=== PATIENT | male | born 1950 | race Caucasian/White ===

== ENCOUNTER 2020-09-14 09:56 | Inpatient (IN) | payer OTHER, MEDICARE, BC ==
[~2020-09-14] VITALS: Ht 172.7 cm; Wt 84.3 kg
[2020-09-14 10:31] LABS: BASOPHILS ABSOLUTE AUTO 0.06 K/mm3 (0.00-0.23); BASOPHILS PERCENT AUTO 1 % (0-2); EOSINOPHILS ABSOLUTE AUTO 0.04 K/mm3 (0.00-0.68); EOSINOPHILS PERCENT AUTO 1 % (0-6); Hematocrit 45.8 % (37.0-53.0); Hemoglobin 14.3 g/dL (13.5-17.5); IMMATURE GRAN ABSOLUTE AUTO 0.03 K/mm3 (0.00-0.10); IMMATURE GRAN PERCENT AUTO 0 % (0-1); LYMPHOCYTES PERCENT AUTO 10 % (21-46); MONOCYTES ABSOLUTE AUTO 0.76 K/mm3 (0.16-1.47); MONOCYTES PERCENT AUTO 9 % (4-13); Mean Corpuscular HGB 29.4 pg (26.0-34.0); Mean Corpuscular HGB Conc 31.2 g/dL (31.5-36.5); Mean Corpuscular Volume 94 fL (80-100); Mean Platelet Volume 12.1 fL (9.1-12.4); NEUTROPHILS ABSOLUTE AUTO 7.08 K/mm3 (1.96-9.15); NEUTROPHILS PERCENT AUTO 80 % (41-73); Platelet Count 210 K/mm3 (150-400); RDW Coefficient Variation 13.7 % (11.7-14.2); RDW Standard Deviation 47.8 fL (35.1-46.3); Red Blood Cell Count 4.87 M/mm3 (4.30-5.90); White Blood Cell Count 8.87 K/mm3 (4.00-11.30)
[2020-09-14 10:45] LABS: International Normalized Ratio 0.98; Prothrombin Time Results 10.5 Sec (9.7-11.5)
[2020-09-14 10:47] LABS: Albumin, Blood 3.9 g/dL (3.4-5.0); Bilirubin, Total 1.2 mg/dL (0.1-1.0); Calcium, Blood 9.2 mg/dL (8.5-10.1); Creatinine, Blood 1.33 mg/dL (0.60-1.20); Free Thyroxine 1.12 ng/dL (0.70-1.60); Globulin, Blood 3.8 g/dL (2.2-4.0); Potassium, Blood 4.4 mmol/L (3.5-5.5); Total Protein, Blood 7.7 g/dL (6.4-8.2); Troponin I 0.034 ng/mL (0.000-0.040)
[2020-09-14 10:50] LABS: Thyroid Stimulating Hormone 1.65 uIU/mL (0.360-4.800)
[2020-09-14] MEDS ORDERED: NAPROXEN250 MG PO (11:43)
[2020-09-14] MEDS ORDERED: OMEP20ER PO (11:44)
[2020-09-14] MEDS ORDERED: TRAM50 PO (11:44)
[2020-09-14] MEDS ORDERED: ASPI81CH PO (14:07)
--- NOTE | 2020-09-14 14:28 | NUR ---
ARRIVAL TO ICU 1335 - PT ARRIVES FROM ED TO ICU AT THIS TIME. DILTIAZEM GTT INFUSING AT 10 MG/HR, HR 140S. DILTIAZEM GTT INCREASED TO 15 MG/HR AT 1400. PO METOPROLOL GIVEN TO PT. BP WNL. AFEBRILE. COVID TEST PENDING. MIV NS STARTED AT 100 ML/HR. LUNG SOUNDS CLEAR; NO RESP DISTRESS. PT INDEPENDENTLY AMBULATED FROM STRETCHER TO BED. WILL CONTINUE TO MONITOR.
--- NOTE | 2020-09-14 15:37 | NUR ---
REASSESSMENT PT SITTING UP IN BED TALKING WITH HIS . DILTIAZEM GTT INFUSING AT 15 MG/HR. REMAINS IN AFIB, HR 120S. BP WNL. HAS EATEN HAMBURGER FOR LUNCH THAT BROUGHT IN. MIV DISCONTINUED. LASIX IV GIVEN. WILL CONTINUE TO MONITOR.
[2020-09-14 16:49] LABS: Source, Urine Clean Catch
[2020-09-14 17:09] LABS: Appearance, Urine Clear (Clear); Bilirubin, Urine Neg (Neg); Blood, Urine Neg (Neg); Color, Urine Yellow (P-Yellow); Glucose Qualitative, Urine Neg (Neg); Ketones, Urine Neg (Neg); Leukocyte Esterase, Urine Neg (Neg); Nitrite, Urine Neg (Neg); Protein, Urine Neg (Neg); Urobilinogen, Urine NORM (Normal); pH, Urine 6.5 (5.0-8.0)
--- NOTE | 2020-09-14 17:55 | NUR ---
SHIFT SUMMARY PT ARRIVED TO PCU AROUND 1330 TODAY. SINCE THEN, HE HAS REMAINED IN ROOM. VISITED FOR FEW HOURS. HAS REMAINED IN AFIB; CURRENT HR 110-120S. DILTIAZEM GTT INFUSING AT 15 MG/HR. MIV DISCONTINUED. ADDITIONAL PERIPHERAL IV INSERTED FOR PT COMFORT. XARELTO PO GIVEN. PT A/O X3. WILL GIVE BEDSIDE, HANDOFF REPORT TO LUDIN GODINEZ.
[2020-09-15 04:19] LABS: BASOPHILS ABSOLUTE AUTO 0.08 K/mm3 (0.00-0.23); BASOPHILS PERCENT AUTO 1 % (0-2); EOSINOPHILS ABSOLUTE AUTO 0.17 K/mm3 (0.00-0.68); EOSINOPHILS PERCENT AUTO 2 % (0-6); Hematocrit 41.9 % (37.0-53.0); Hemoglobin 13.6 g/dL (13.5-17.5); IMMATURE GRAN ABSOLUTE AUTO 0.02 K/mm3 (0.00-0.10); IMMATURE GRAN PERCENT AUTO 0 % (0-1); LYMPHOCYTES ABSOLUTE AUTO 1.87 K/mm3 (0.84-5.20); LYMPHOCYTES PERCENT AUTO 19 % (21-46); MONOCYTES ABSOLUTE AUTO 0.87 K/mm3 (0.16-1.47); MONOCYTES PERCENT AUTO 9 % (4-13); Mean Corpuscular HGB 29.6 pg (26.0-34.0); Mean Corpuscular HGB Conc 32.5 g/dL (31.5-36.5); Mean Corpuscular Volume 91 fL (80-100); Mean Platelet Volume 11.4 fL (9.1-12.4); NEUTROPHILS ABSOLUTE AUTO 7.06 K/mm3 (1.96-9.15); NEUTROPHILS PERCENT AUTO 70 % (41-73); Platelet Count 201 K/mm3 (150-400); RDW Coefficient Variation 13.8 % (11.7-14.2); Red Blood Cell Count 4.59 M/mm3 (4.30-5.90); White Blood Cell Count 10.07 K/mm3 (4.00-11.30)
[2020-09-15 04:39] LABS: Alanine Aminotransfer (ALT/SGP 30 U/L (12-78); Albumin, Blood 3.5 g/dL (3.4-5.0); Albumin/Globulin Ratio 0.9 (0.8-1.8); Alk Phos 64 U/L (50-136); Anion Gap 6 mmol/L (6-16); Aspartate Aminotrans (AST/SGOT 17 U/L (12-37); Blood Urea Nitrogen 27 mg/dL (8-24); Bun/Creatinine Ratio 23.7 (12.0-20.0); CO2, Blood 28 mmol/L (21-32); Calcium, Blood 8.8 mg/dL (8.5-10.1); Chloride, Blood 108 mmol/L (98-108); Creatinine, Blood 1.14 mg/dL (0.60-1.20); Globulin, Blood 3.7 g/dL (2.2-4.0); Glomerular Filtration Rate >60 (60-); Glucose, Blood 120 mg/dL (70-99); Sodium, Blood 142 mmol/L (136-145); Total Protein, Blood 7.2 g/dL (6.4-8.2); Troponin I 0.075 ng/mL (0.000-0.040)
--- NOTE | 2020-09-15 07:34 | NUR ---
SHIFT SUMMARY PATIENT PLEASENT AND COOPERATIVE THROUGHOUT THE NIGHT. PATIENT APPEARED TO SLEEP WELL THROUGHOUT THE BEGINNING OF THE NIGHT BUT REPORTS HE WAS ONLY ABLE TO NAP ON AND OFF AFTER 0200. CARDIZEM GTT RUNNING AT 15 MG/HR. PATIENT'S HEART RATE WAS IN THE 100'S-110'S THROUGHOUT MOST OF THE NIGHT. PATIENT SBA IN ROOM. REPORT GIVEN TO ONCOMING RN.
--- NOTE | 2020-09-15 08:52 | NUR ---
ASSESSMENT- PT AWAKE, ALERT, COOPERATIVE. DENIES ANY CHEST PAIN OR SOB. DOES C/O LOWER BACK PAIN-STATES CHRONIC PROBLEM. TRIED CHAIR BUT NO RELIEF, EGG CRATE ON BED WITH SOME IMPROVEMENT, PO PAIN RX GIVEN. ATRIAL FIB-BP STABLE. IV CARDIZEM INFUSING. PIV X 2 INTACT.
--- NOTE | 2020-09-15 10:06 | NUR ---
RESTING COMFORTABLY, STATES BACK PAIN LESS. NO COMPLAINTS
--- NOTE | 2020-09-15 11:16 | NUR ---
VS STABLE. CONTINUES AFIB. C/O LOWER BACK PAIN-RX WITH TYLENOL.
--- NOTE | 2020-09-15 13:14 | NUR ---
Echocardiogram performed.
--- NOTE | 2020-09-15 16:50 | NUR ---
DISCUSSION WITH PT AND PT'S REGARDING PLAN OF CARE. CONTINUES WITH AFIB 110-120'S WITH CARDIZEM AT 15 MG/HR. UPDATE TO DR. CASTILLO, ORDERS FOR CARDIOLOGY CONSULT.
--- NOTE | 2020-09-15 18:08 | NUR ---
DR CASTILLO HERE TO DISCUSS CARE WITH PT AND PT'S SIGNIFICANT OTHER. THEY STATE QUESTIONS ANSWERED. CONTINUES ATRIAL FIB 110-120'S. BP STABLE. EATING, NO N/V, NO CP.
[2020-09-16 04:19] LABS: Hematocrit 43.6 % (37.0-53.0); Hemoglobin 14.1 g/dL (13.5-17.5); Mean Corpuscular HGB 29.7 pg (26.0-34.0); Mean Corpuscular HGB Conc 32.3 g/dL (31.5-36.5); Mean Corpuscular Volume 92 fL (80-100); Mean Platelet Volume 11.5 fL (9.1-12.4); Platelet Count 189 K/mm3 (150-400); RDW Coefficient Variation 13.5 % (11.7-14.2); RDW Standard Deviation 46.3 fL (35.1-46.3); Red Blood Cell Count 4.74 M/mm3 (4.30-5.90); White Blood Cell Count 9.93 K/mm3 (4.00-11.30)
[2020-09-16 04:55] LABS: Alanine Aminotransfer (ALT/SGP 25 U/L (12-78); Albumin, Blood 3.4 g/dL (3.4-5.0); Albumin/Globulin Ratio 0.8 (0.8-1.8); Alk Phos 69 U/L (50-136); Anion Gap 9 mmol/L (6-16); Aspartate Aminotrans (AST/SGOT 19 U/L (12-37); Bilirubin, Total 1.2 mg/dL (0.1-1.0); Blood Urea Nitrogen 21 mg/dL (8-24); Bun/Creatinine Ratio 17.9 (12.0-20.0); CHOL/HDL RATIO 1.8; CO2, Blood 21 mmol/L (21-32); Calcium, Blood 8.4 mg/dL (8.5-10.1); Chloride, Blood 108 mmol/L (98-108); Cholesterol 74 mg/dL (50-200); Creatinine, Blood 1.17 mg/dL (0.60-1.20); Glomerular Filtration Rate >60 (60-); Glucose, Blood 133 mg/dL (70-99); HDL Cholesterol 41 mg/dL (>39); LDL/HDL RATIO 0.5; Low Density Lipoprotein Chol 20 mg/dL (0-110); Potassium, Blood 4.3 mmol/L (3.5-5.5); Sodium, Blood 138 mmol/L (136-145); Total Protein, Blood 7.4 g/dL (6.4-8.2); Triglycerides 64 mg/dL (30-160); Very Low Density Lipoprot Chol 12 mg/dL (6-32)
--- NOTE | 2020-09-16 06:00 | NUR ---
SUMMARY NO ACUTE CHANGES NOTED THROUGH THE NIGHT. PT IS A&O X4, ON RA, INDEPENDENT IN THE ROOM, VSS, CARDIZEM GTT INFUSING @ 10 ML/HR, HR REMAINS IN AFIB, HR CONTINUES TO FLUCTUATE BETWEEN 110-120'S PER WEB DESIGN INTERN/MONITOR, PT DENIES CP/PRESSURE, PT IS TOLERATING PO INTAKE, VOIDING WNL. PT IS CURRENTLY WAITING FOR CARDIOLOGY CONSULT. WCTM, CALL LIGHT IN REACH.
--- NOTE | 2020-09-16 07:49 | NUR ---
CARDIZEM INCREASED TO 15MG/HR FOR HEART RATE 140 TO 150.
[2020-09-16 10:12] LABS: International Normalized Ratio 1.2; Prothrombin Time Results 12.7 Sec (9.7-11.5)
--- NOTE | 2020-09-16 15:15 | NUR ---
DR. FAULKNER AWARE OF HEART RATE 130-150. NO CONCERNS AT THIS TIME, WILL RE-EVALUATE IN AM UNLESS BECOMES SYMPTOMATIC.
--- NOTE | 2020-09-16 18:07 | NUR ---
SHIFT SUMMARY; A/A/OX4 THROUGHOUT SHIFT TODAY. INDEPENDANT IN ROOM. CATHERINE CAGE DC'D TODAY BY FRUIT SPRAYER, INCREASED PO METOPROLOL. HEPARIN STARTED TODAY AND INFUSING AT 15UNITS/KG. HEART RATE REMAINED INCREASED THROUGHOUT SHIFT AT 130-150, DR. FAULKNER AWARE, CONTINUE TO MONITOR PER DR. FAULKNER. DR. FAULKNER TO RE-EVALUATE IN AM AND WILL NOTIFY IF ANY ACUTE CHANGES. PT DENIES SOB OR CHEST PAIN, STATES FEELS FINE MULTIPLE TIMES THROUGHOUT DAY. WILL CONTINUE TO MONITOR AND TREAT UNTIL CHANGE OF SHIFT.
--- NOTE | 2020-09-16 20:05 | NUR ---
RHYTHM CONVERSION: AT 192, I SPOKE WITH [employer] REGARDING PATIENT'S HEART RATE. [employer] MAGNOLIA STATED THAT PATIENT'S HEART RATE WAS IN THE 160'S AND HAD BEEN SINCE 1830. STATED PATIENT'S HEART RATE HAD AVERAGED >150 SINCE 1400. [employer] CALLED AT 1942 TO NOTIFY ME THAT PATIENT HAD A 6 BEAT RUN OF VTACH. I WENT INTO THE PATIENT'S ROOM. PATIENT WAS UP TO THE BATHROOM BRUSHING HIS TEETH. HE DENIED DIZZINESS, CHEST PAIN, SHORTNESS OF BREATH, AND PALPITATIONS. PATIENT CONTINUED TO BRUSH HIS TEETH AND I LOGGED INTO THE COMPUTER. [employer] MAGNOLIA CALLED AT 1950 AND SAID PATIENT HAD A 5 SECOND RUN OF VTACH. PATIENT STILL IN BATHROOM, DENIED CHEST PAIN, SHORTNESS OF BREATH, DIZZINESS, AND PALPITATIONS. AT THIS POINT I ENCOURAGED PATIENT TO COME BACK TO BED SO THAT I COULD CHECK HIS BLOOD PRESSURE. PATIENT SITTING AT EDGE OF BED. MAGNOLIA THEN CALLED AT 1952 AND SAID THAT PATIENT HAD CONVERTED TO SINUS RHYTHM IN THE 60'S. BP 127/75. PATIENT CONTINUED TO DENY DIZZINESS, CHEST PAIN, SHORTNESS OF BREATH, AND PALPITATIONS. SHIFT ASSESSMENT COMPLETED. PATIENT RESTING IN BED. CALL LIGHT IN REACH.
[2020-09-17 03:52] LABS: BASOPHILS PERCENT AUTO 1 % (0-2); EOSINOPHILS ABSOLUTE AUTO 0.13 K/mm3 (0.00-0.68); EOSINOPHILS PERCENT AUTO 2 % (0-6); Hematocrit 43.2 % (37.0-53.0); Hemoglobin 13.9 g/dL (13.5-17.5); IMMATURE GRAN ABSOLUTE AUTO 0.02 K/mm3 (0.00-0.10); IMMATURE GRAN PERCENT AUTO 0 % (0-1); LYMPHOCYTES ABSOLUTE AUTO 2.01 K/mm3 (0.84-5.20); LYMPHOCYTES PERCENT AUTO 24 % (21-46); MONOCYTES ABSOLUTE AUTO 0.88 K/mm3 (0.16-1.47); MONOCYTES PERCENT AUTO 10 % (4-13); Mean Corpuscular HGB 29.3 pg (26.0-34.0); Mean Corpuscular HGB Conc 32.2 g/dL (31.5-36.5); Mean Corpuscular Volume 91 fL (80-100); Mean Platelet Volume 11.1 fL (9.1-12.4); NEUTROPHILS PERCENT AUTO 63 % (41-73); Platelet Count 203 K/mm3 (150-400); RDW Coefficient Variation 13.4 % (11.7-14.2); RDW Standard Deviation 45.3 fL (35.1-46.3); Red Blood Cell Count 4.74 M/mm3 (4.30-5.90); White Blood Cell Count 8.44 K/mm3 (4.00-11.30)
[2020-09-17 04:05] LABS: International Normalized Ratio 1.15; Prothrombin Time Results 12.2 Sec (9.7-11.5)
[2020-09-17 04:14] LABS: Bun/Creatinine Ratio 17.5 (12.0-20.0); Calcium, Blood 8.6 mg/dL (8.5-10.1); Creatinine, Blood 1.37 mg/dL (0.60-1.20); Magnesium, Blood 1.8 mg/dL (1.6-2.4); Potassium, Blood 3.7 mmol/L (3.5-5.5)
--- NOTE | 2020-09-17 07:21 | NUR ---
SHIFT SUMMARY: PATIENT A/OX3. CONVERTED TO SINUS RHYTHM, SEE PREVIOUS NOTE. SCHEDULED ULTRAM GIVEN FOR CHRONIC BACK PAIN. USED HOME CPAP FOR SLEEP. UP IND IN ROOM. EKG COMPLETED. CRITICAL PTT, HEPARIN ADJUSTED PER PHARMACY. REPORT GIVEN TO ONCOMING RN.
--- NOTE | 2020-09-17 17:26 | NUR ---
SHIFT SUMMARY; A/A/OX4 THROUGHT SHIFT, REMAINED IN SINUS RHYTHM. HEPARIN INFUSING AT 14UNITS/KG PER ORDERS. INDEPENDANT IN ROOM. STATUS CHANGED TO MEDICAL TODAY. NO ACUTE MEDICAL CHANGES. SPOUSE AT BEDSIDE, WILL CONTINUE TO TREAT AND MONITOR UNTIL CHANGE OF SHIFT.
[2020-09-18 04:57] LABS: Hematocrit 45.6 % (37.0-53.0); Hemoglobin 14.8 g/dL (13.5-17.5); Mean Corpuscular HGB 29.5 pg (26.0-34.0); Mean Corpuscular HGB Conc 32.5 g/dL (31.5-36.5); Mean Corpuscular Volume 91 fL (80-100); Platelet Count 217 K/mm3 (150-400); RDW Coefficient Variation 13.4 % (11.7-14.2); RDW Standard Deviation 44.7 fL (35.1-46.3); Red Blood Cell Count 5.02 M/mm3 (4.30-5.90); White Blood Cell Count 7.99 K/mm3 (4.00-11.30)
[2020-09-18 05:11] LABS: International Normalized Ratio 1.22; Prothrombin Time Results 12.9 Sec (9.7-11.5)
[2020-09-18 05:18] LABS: Bun/Creatinine Ratio 21.8 (12.0-20.0); Calcium, Blood 8.8 mg/dL (8.5-10.1); Creatinine, Blood 1.47 mg/dL (0.60-1.20); Potassium, Blood 4.1 mmol/L (3.5-5.5)
--- NOTE | 2020-09-18 06:12 | NUR ---
SHIFT SUMMARY: ED IS A&O X 4. HE IS INDEPENDENT IN THE ROOM. VSS, NO ACUTE EVENTS OVERNIGHT. HE DID WEAR HIS CPAP WHILE SLEEPING. HE IS TOLERATING PO INTAKE WELL. HEPARIN DRIP INFUSING, NO CHANGES TO RATE THIS SHIFT. HE USES HIS CALL LIGHT APPROPRIATELY. HE IS PLEASANT AND COOPERATIVE. HE DENIES ANY DIFFICULTY URINATING. HE IS LYING IN BED WITH HIS CALL LIGHT IN REACH. WILL REPORT TO DAY SHIFT RN.
--- NOTE | 2020-09-18 08:09 | NUR ---
09/18/20 @ 0800 STUDENT REQUESTED PERMISSION TO ACCESS CHART AND PROVIDE CARE. PATIENT AGREES.
--- NOTE | 2020-09-18 17:11 | NUR ---
TRANSFER OF CARE REPORT GIVEN TO HERBERT HERNANDEZ ON MEDICAL FLOOR. TELEMETERY HAS SHOWN PT TO BE IN SINUS BRIAN RATE IN THE 50'S TODAY, WITH ACTIVITY HR WILL GO TO 70'S. HEPARIN GTT CONTINUES AT 14UNITS/KG/HR, NO CHANGES MADE TODAY. VITALS HAVE BEEN STABLE. PT AND FAMILY AWARE OF TRANSFER. BELONGINGS GATHERED AND GIVEN TO PT.
--- NOTE | 2020-09-18 19:18 | NUR ---
SHIFT SUMMARY- PT ALERT AND ORIENTED TO SELF, FAMILY , PERSON AND PLACE. PT IS VERY FORGETFUL AND WILL ASK SOMEONE TO HELP HER WITH SOMETHING AND A FEW MINUTES LATER CALL FOR THE EXACT SAME THING. PT PERMACATH DRESSING WAS CHANGED BY [employer] CASTER JOHN. SITE BEGAN BLEEDING THIS EVENING AND HERBERT CRUZ BROUGHT UP A WEIGHT FOR THE DRESSING, HE STATED TO KEEP IT ON LONG THE PT CAN TOLLERATE IT. PT SEEMS TO BE TOLLERATING IT WELL. WEIGHT IS REMOVED FOR POSITION CHANGES AND THEN REPLACED. THE PERMACATH BEGINS TO OOZE BLOOD. PASSED ON IN BEDSIDE REPORT TO NIGHT RN PT REPOSITIONED WITH HER ARMS ON PILLPWS ABOVE THE LEVEL OF HER HEART THIS EVENING HER EDEMA SEEMED TO GREATLY INCREASE TO +3 IN THE PT BUE. PT TOLLERATING LAYING FLAT WITH THE WEIGHT WELL AT THIS TIME.
--- NOTE | 2020-09-18 21:39 | NUR ---
PHYSICIAN COMMUNICATION CONTACTED ASSISTANT SURVEYOR PHYSICIAN, DR PAUL, TO NOTIFY HER THAT THE PATIENT'S HEART RATE WAS CURRENTLY 48 AND HE HAD METOPROLOL ORDERED AND TO ASK FOR PARAMETERS ON THE METOPROLOL. DR PAUL SAID TO HOLD THE METOPROLOL FOR A SYSTOLIC BP LESS THAN 105 AND HEART RATE LESS THAN 60.
[2020-09-19 05:53] LABS: International Normalized Ratio 1.57; Prothrombin Time Results 16.4 Sec (9.7-11.5)
[2020-09-19 06:13] LABS: Bun/Creatinine Ratio 20.8 (12.0-20.0); Creatinine, Blood 1.3 mg/dL (0.60-1.20); Potassium, Blood 4.4 mmol/L (3.5-5.5)
--- NOTE | 2020-09-19 06:41 | NUR ---
SHIFT SUMMARY PATIENT ALERT AND ORIENTED. HAD NO COMPLAINTS OF CHEST PAIN OR SHORTNESS OF BREATH. PATIENT REMAINS ON HEPARIN DRIP WHICH IS INFUSING INTO PATIENT'S R FOREARM IV. IV IN LEFT AC PATENT AND FLUSHED. PATIENT REPORTS NOT SLEEPING WELL OVERNIGHT. BED IN LOWEST POSITION WITH WHEELS LOCKED. CALL LIGHT WITHIN REACH. REPORT GIVEN TO ONCOMING RN.
[2020-09-19] MEDS ORDERED: METO100ER PO (10:20)
[2020-09-19] MEDS ORDERED: ACET325 PO (10:20)
[2020-09-19] MEDS ORDERED: WARF5 PO (10:21)
--- NOTE | 2020-09-19 11:12 | NUR ---
PATIENT DISCHARGED TO HOME WITH . IV SALINE LOCKS REMOVED WITHOUT INCIDENT. DISCUSSED NEW MEDICATIONS (COUMADIN): DIETARY RESTRICTIONS, SAFETY AND FALLS, CHANGES IN SKIN TEXTURE, LABS, S/S OF BLEEDING/GIB; PATIENT AND VERBALIZED UNDERSTANDING OF INSTRUCTIONS. LEFT UNIT VIA W/C AT 1112.
== END 2020-09-19 11:13 | disposition home or self-care (01) | DRG 308 ==
LOC: ER 09:56 → PCU 12:57 → MEDS 09-18 17:21
PROVIDERS: Emergency Medicine; Internal Medicine; Internal Medicine Cardiovascular Disease; Nurse Practitioner Acute Care; ADMIT Internal Medicine
PROC: 5A09357 Assistance with Respiratory Ventilation, Less than 24 Consecutive Hours, Continuous Positive Airway Pressure (ICD-10-PCS; principal; 2020-09-14)
DX: I48.20 Chronic atrial fibrillation, unspecified (principal); I50.33 Acute on chronic diastolic (congestive) heart failure; N17.9 Acute kidney failure, unspecified; Z86.73 Personal history of transient ischemic attack (TIA), and cerebral infarction without residual deficits; Z87.891 Personal history of nicotine dependence; K21.9 Gastro-esophageal reflux disease without esophagitis; G47.33 Obstructive sleep apnea (adult) (pediatric); I05.0 Rheumatic mitral stenosis; I11.0 Hypertensive heart disease with heart failure; Z79.01 Long term (current) use of anticoagulants
CPT/HCPCS: 36415; 71045; 80048; 80053; 80061; 81003; 83735; 83880; 84439; 84443; 84484; 85025; 85027; 85610; 85730; 93005; 93010; 93306; 94660; 94762; 96365; 96366; 96375; 96376; 99285-25; A9270; A9270-GY; J1644; J1940; J7030; U0004

== ENCOUNTER 2022-08-16 19:01 | Inpatient (IN) | payer OTHER ==
[~2022-08-16] VITALS: Ht 167.6 cm; Wt 89.3 kg
[~2022-08-16 19:01] MED LIST: ACET325 PO; ASPI81CH PO; METO50 PO; NAPROXEN250 MG PO; OMEP20ER PO; TRAM50 PO; WARF5 PO
[2022-08-16 19:31] LABS: BASOPHILS ABSOLUTE AUTO 0.02 K/mm3 (0.00-0.23); BASOPHILS PERCENT AUTO 0 % (0-2); EOSINOPHILS ABSOLUTE AUTO 0.01 K/mm3 (0.00-0.68); EOSINOPHILS PERCENT AUTO 0 % (0-6); Hematocrit 37.8 % (37.0-53.0); Hemoglobin 12.6 g/dL (13.5-17.5); IMMATURE GRAN ABSOLUTE AUTO 0.05 K/mm3 (0.00-0.10); IMMATURE GRAN PERCENT AUTO 1 % (0-1); LYMPHOCYTES ABSOLUTE AUTO 0.31 K/mm3 (0.84-5.20); LYMPHOCYTES PERCENT AUTO 3 % (21-46); MONOCYTES ABSOLUTE AUTO 0.44 K/mm3 (0.16-1.47); MONOCYTES PERCENT AUTO 5 % (4-13); Mean Corpuscular HGB 29.6 pg (26.0-34.0); Mean Corpuscular HGB Conc 33.3 g/dL (31.5-36.5); Mean Corpuscular Volume 89 fL (80-100); Mean Platelet Volume 11.3 fL (9.1-12.4); NEUTROPHILS ABSOLUTE AUTO 8.28 K/mm3 (1.96-9.15); NEUTROPHILS PERCENT AUTO 91 % (41-73); Platelet Count 162 K/mm3 (150-400); RDW Standard Deviation 45.4 fL (35.1-46.3); Red Blood Cell Count 4.26 M/mm3 (4.30-5.90); White Blood Cell Count 9.11 K/mm3 (4.00-11.30)
[2022-08-16 19:44] LABS: Alanine Aminotransfer (ALT/SGP 21 U/L (12-78); Albumin, Blood 3.3 g/dL (3.4-5.0); Albumin/Globulin Ratio 0.9 (0.8-1.8); Alk Phos 64 U/L (50-136); Anion Gap 5 mmol/L (6-16); Aspartate Aminotrans (AST/SGOT 19 U/L (12-37); Bilirubin, Total 1.1 mg/dL (0.1-1.0); Blood Urea Nitrogen 17 mg/dL (8-24); Bun/Creatinine Ratio 12.9 (12.0-20.0); CO2, Blood 26 mmol/L (21-32); Calcium, Blood 8.5 mg/dL (8.5-10.1); Chloride, Blood 107 mmol/L (98-108); Creatinine, Blood 1.32 mg/dL (0.60-1.20); Ethanol (Alcohol), Blood, Med <3 mg/dL; Globulin, Blood 3.7 g/dL (2.2-4.0); Glomerular Filtration Rate 58 (60-); Glucose, Blood 140 mg/dL (70-99); Potassium, Blood 3.5 mmol/L (3.5-5.5); Sodium, Blood 138 mmol/L (136-145)
[2022-08-16] MEDS ORDERED: Aspir 8181 MG PO (19:48)
[2022-08-16 20:10] LABS: International Normalized Ratio 2.88; Prothrombin Time Results 28.2 Sec (9.7-11.5)
[2022-08-16 20:35] LABS: Influenza A, PCR NEGATIVE (NEGATIVE); Influenza B, PCR NEGATIVE (NEGATIVE); Resp Syncytial Virus, PCR NEGATIVE (NEGATIVE); SARS-Cov-2 (COVID-19) PCR, MMC NEGATIVE (NEGATIVE)
[2022-08-16 22:30] LABS: Source, Urine Clean Catch
[2022-08-16 22:44] LABS: Bilirubin, Urine Neg (Neg); Blood, Urine 4+ (Neg); Glucose Qualitative, Urine Neg (Neg); Ketones, Urine 1+ (Neg); Leukocyte Esterase, Urine 1+ (Neg); Nitrite, Urine Neg (Neg); Protein, Urine 2+ (Neg); Specific Gravity, Urine 1.015 (1.003-1.022); Urobilinogen, Urine 1+ (Normal)
[2022-08-16 22:50] LABS: Appearance, Urine Clear (Clear); Color, Urine Yellow (P-Yellow)
[2022-08-16 22:51] LABS: Amorphous Light (0-Heavy); Bacteria Rare /hpf; Mucus Light (0-Heavy); Red Blood Cells, Urine 25-50 /hpf (0-2); Squamous Epithelial Cells Few /hpf (Few); White Blood Cells, Urine 0-2 /hpf (0-5)
[2022-08-16 23:01] LABS: U Amphetamine Screen Not Detected; U Barbituate Screen Not Detected; U Benzodiazapine Screen Not Detected; U Buprenorphine Screen Not Detected; U Cannabinoids Screen Not Detected; U Cocaine Screen Not Detected; U Methadone Screen Not Detected; U Methamphetamine Screen Not Detected; U Opiates Screen Not Detected; U Oxycodone Screen Not Detected; U Phencyclidine Screen Not Detected; U Propoxyphene Screen Not Detected
[2022-08-17 01:02] LABS: Adenovirus Not Detected (NOT DETECT); Bordetella pertussis Not Detected (NOT DETECT); Chlamydophila pneumoniae Not Detected (NOT DETECT); Coronavirus 229E Not Detected (NOT DETECT); Coronavirus HKU1 Not Detected (NOT DETECT); Coronavirus NL63 Not Detected (NOT DETECT); Coronavirus OC43 Not Detected (NOT DETECT); Human Metapneumovirus Not Detected (NOT DETECT); Human Rhinovirus/Enterovirus Not Detected (NOT DETECT); Influenza A/2009-H1 Not Detected (NOT DETECT); Influenza A/H1 Not Detected (NOT DETECT); Influenza A/H3 Not Detected (NOT DETECT); Influenza B Not Detected (NOT DETECT); Mycoplasma pneumoniae Not Detected (NOT DETECT); Parainfluenza Virus 1 Not Detected (NOT DETECT); Parainfluenza Virus 2 Not Detected (NOT DETECT); Parainfluenza Virus 3 Not Detected (NOT DETECT); Parainfluenza Virus 4 Not Detected (NOT DETECT); Respiratory Syncytial Virus Not Detected (NOT DETECT); SARS-Cov-2 (COVID-19), BioFire Not Detected (NOT DETECT)
[2022-08-17] MEDS ORDERED: DILT120ERA PO (01:27)
--- NOTE | 2022-08-17 04:44 | NUR ---
SHIFT SUMMARY PT NEW ED ADMIT THIS EVENING. UPON ARRIVAL FROM ED PT HAD TEMPERATURE OF 103.1. PT HAD RECIEVED TYLENOL JUST BEFORE ADMISSION BUT PT AND REPORTED THAT HE VOMITED IT UP. TYLENOL READMINISTERED ALONG WITH ZOFRAN. PT TOLERATED WELL. NO FURTHER EPISODES OF NAUSEA OR VOMITING. ICE PACKS PLACED BENEATH PT'S ARMS AND BEHIND HIS NECK. TEMPERATURE STEADILY DECREASED THE REMAINDER OF THE SHIFT READING 98.5 THIS AM. PT HAS BEEN ALERT AND ORIENTED. VERY TIRED. HAS DENIED ANY PAIN OR SOB. SLEPT WHEN NOT DISTURBED BY STAFF.
[2022-08-17 04:51] LABS: Hematocrit 35.3 % (37.0-53.0); Hemoglobin 11.6 g/dL (13.5-17.5); Mean Corpuscular HGB 29.7 pg (26.0-34.0); Mean Corpuscular HGB Conc 32.9 g/dL (31.5-36.5); Mean Corpuscular Volume 90 fL (80-100); Mean Platelet Volume 11.3 fL (9.1-12.4); Platelet Count 143 K/mm3 (150-400); RDW Coefficient Variation 14.2 % (11.7-14.2); RDW Standard Deviation 47.8 fL (35.1-46.3); Red Blood Cell Count 3.91 M/mm3 (4.30-5.90); White Blood Cell Count 7.08 K/mm3 (4.00-11.30)
[2022-08-17 05:05] LABS: International Normalized Ratio 2.43
[2022-08-17 05:07] LABS: Bun/Creatinine Ratio 13.2 (12.0-20.0); Calcium, Blood 7.1 mg/dL (8.5-10.1); Creatinine, Blood 1.36 mg/dL (0.60-1.20); Potassium, Blood 3.4 mmol/L (3.5-5.5)
[2022-08-17 05:20] LABS: BAND PERCENT MAN 18 % (0-8); BASOPHILS PERCENT MAN 0 % (0-2); EOSINOPHILS PERCENT MAN 0 % (0-6); LYMPHOCYTES ABSOLUTE MAN 0.21 K/mm3 (0.84-5.20); LYMPHOCYTES PERCENT MAN 3 % (21-46); MONOCYTES ABSOLUTE MAN 0.56 K/mm3 (0.16-1.47); MONOCYTES PERCENT MAN 8 % (4-13); SEG NEUTROPHILS PERCENT MAN 71 % (41-73); TOTAL CELLS COUNTED 100
[2022-08-17 05:23] LABS: Prothrombin Time Results 24.1 Sec (9.7-11.5)
[2022-08-17 14:21] LABS: BASOPHILS ABSOLUTE AUTO 0.01 K/mm3 (0.00-0.23); BASOPHILS PERCENT AUTO 0 % (0-2); EOSINOPHILS PERCENT AUTO 0 % (0-6); Hematocrit 33.9 % (37.0-53.0); Hemoglobin 11.2 g/dL (13.5-17.5); IMMATURE GRAN ABSOLUTE AUTO 0.03 K/mm3 (0.00-0.10); IMMATURE GRAN PERCENT AUTO 0 % (0-1); LYMPHOCYTES ABSOLUTE AUTO 0.21 K/mm3 (0.84-5.20); LYMPHOCYTES PERCENT AUTO 3 % (21-46); MONOCYTES ABSOLUTE AUTO 0.18 K/mm3 (0.16-1.47); MONOCYTES PERCENT AUTO 3 % (4-13); Mean Corpuscular HGB 29.5 pg (26.0-34.0); Mean Corpuscular Volume 89 fL (80-100); NEUTROPHILS ABSOLUTE AUTO 6.62 K/mm3 (1.96-9.15); NEUTROPHILS PERCENT AUTO 94 % (41-73); Platelet Count 133 K/mm3 (150-400); RDW Coefficient Variation 14.3 % (11.7-14.2); RDW Standard Deviation 46.5 fL (35.1-46.3); White Blood Cell Count 7.05 K/mm3 (4.00-11.30)
--- NOTE | 2022-08-17 15:14 | NUR ---
FAMILY REPORTS THAT PATIENT SUDDENLY BECOME SOB. VITAL SIGNS TAKEN BP 136/99, HR 89 BPM, RR 26 BREATH/MIN, TEMP OF 98.7 TAKEN ORALY. LUNGS HAS SOME CRACKLES. CALLED DR. CASTILLO REGARDING PATIENT CONDITION. RECIEVED ORDER TO GIVE LASIX 20 MG IV ONE TIME DOSE.
--- NOTE | 2022-08-17 18:36 | NUR ---
SHIFT SUMMARY: PATIENT A&OX4. SLOW TO RESPOND. PLEASANT AND COOPERATIVE WITH CARE. USES CALL LIGHT APPROPRIATELY AND ABLE TO ADVOCATE FOR HIS NEEDS. PATIENT HAS BEEN LAYING IN BED T/O SHIFT. USES URINAL AT BEDSIDE. LUNGS HAS SOME CRACKLES T/O. FIBRILE RANGES TEMP OF 99.0-101.8 TAKEN ORALY T/O SHIFT. RECIEVED PRN TYLENOL PER EMAR. DENIES CP/CHEST DISCOMFORT AND DENIES GENERALIZED PAIN. RECIEVED ALL SCHEDULED ANTIBIOTICS THIS SHIFT. AFTER RECIEVING ONE DOSE OF LASIX IV THIS PM. PATIENT BREATHING SEEMS TO BE IMPROVING. PATIENT ON HOME CPAP WITH NO O2 BLEED IN TO MACHINE. FAMILY AT BEDSIDE T/O THE DAY. VITAL SIGNS REVIEWED. BED IN LOWEST POSITION, LOCKED AND CALL LIGHT IN REACH.
[2022-08-18 04:52] LABS: International Normalized Ratio 2.25; Prothrombin Time Results 22.4 Sec (9.7-11.5)
[2022-08-18 05:02] LABS: Albumin, Blood 2.8 g/dL (3.4-5.0); Albumin/Globulin Ratio 0.7 (0.8-1.8); Bilirubin, Total 0.8 mg/dL (0.1-1.0); Bun/Creatinine Ratio 13.8 (12.0-20.0); Calcium, Blood 7.2 mg/dL (8.5-10.1); Creatinine, Blood 1.38 mg/dL (0.60-1.20); Globulin, Blood 4.1 g/dL (2.2-4.0); Magnesium, Blood 1.9 mg/dL (1.6-2.4); Potassium, Blood 3.5 mmol/L (3.5-5.5); Total Protein, Blood 6.9 g/dL (6.4-8.2)
--- NOTE | 2022-08-18 06:23 | NUR ---
ADMINISTRATIVE VOLUNTEER SUMMARY MANY FAMILY MEMBERS AT BEDSIDE AT THE BEGINNING OF SHIFT. FAMILY REPORTS THAT MENTATION OF PATIENT IS BELOW BASELINE. PT IS SLOW TO RESPOND AND EPISODIC CONFUSION BUT ABLE TO ANSWER ORIENATION QUESTIONS. PT HAD A HIGH FEVER OF 102.5; APPLIED ICE PACKS AND ADMINSTERED TYLENOL. TEMP CAME DOWN TO NORMAL RANGE AND BACK UP TO 101.7. CONTINUING TO MONITOR AND TREAT W/ICE AND TYLENOL. PT BROUGHT IN CPAP F/HOME. PT WORE CONTINUOUSLY T/O THE NIGHT. PT WAS SATING ON THE HIGH 80'S; RT SET CPAP W/2L O2 BLEED IN. WHEN PT TOOK CPAP OFF, ADDED NC 2L O2 TO KEEP SATS ABOVE 90%. NEW IV PLACED IN LEFT AC; CONT TO ADMINISTER ABOX PER EMAR. CALL LIGHT IN REACH.
[2022-08-18 12:19] LABS: Vancomycin, Trough 17.9 ug/mL (5.0-10.0)
--- NOTE | 2022-08-18 17:28 | NUR ---
SHIFT SUMMARY: PATIENT ALERT AND ORIENTED. ANSWER TO QUESTIONS APPROPRIATELY. PATIENT HAD 5 LARGE LIQUID BROWN BM THIS SHIFT. REPORTS TO DR. CASTILLO REGARDING THIS ISSUE. DR. CASTILLO PLACE AN ORDER TO OBTAIN A STOOL SAMPLE FOR GI PANEL. STOOL SPECIMEN WAS COLLECTED AND SENT OUT TO LAB THIS AFTERNOON. AWAITING FOR RESULT. AROUND 1610 PATIENT BECOMES FIBRILE TEMP RANGES 100.8-102.0. GIVEN TYLENOL AND APPLIED ICE PACK. TEMP WAS DOWN TO 99.6. BLOOD CULTURES WAS DONE TODAY AND AWAITING FOR RESULT. PATIENT RECIEVED ALL SCHEDULED MEDICATION THIS SHIFT. PATIENT USES O2 2L VIA NC WITH SPO2 RANGES 95-98%. LUNGS COARSE AND CRACKLES T/O. DENIES SOB. PATIENT HAS BEEN INCONTINENT/CONTINENT FOR BOWELS AND BLADDERS. USES URINAL SOMETIMES WITH ASSISTANCE AND WEAR ATTENDS. PATIENT HAS BEEN RESTING IN BED T/O SHIFT. FAMILY WAS AT BEDSIDE PART OF THE SHIFT. VITAL SIGNS REVIEWED. BED IN LOWEST POSITION, LOCKED AND CALL LIGHT IN REACH.
[2022-08-18 18:15] LABS: Adenovirus F 40/41 Not Detected (NOT DETECT); Astrovirus Not Detected (NOT DETECT); Campylobacter Sp Detected (NOT DETECT); Cryptosporidium Not Detected (NOT DETECT); Cyclospora Cayetanensis Not Detected (NOT DETECT); E. Coli O157 Not Detected (NOT DETECT); Entamoeba Histolytica Not Detected (NOT DETECT); Enteroaggregative E. coli-EAEC Not Detected (NOT DETECT); Enteropathogenic E. coli-EPEC Not Detected (NOT DETECT); Enterotoxigenic E. coli-ETEC Not Detected (NOT DETECT); Giardia Lamblia Not Detected (NOT DETECT); Norovirus GI/GII Not Detected (NOT DETECT); Plesiomonas Shigelloides Not Detected (NOT DETECT); Rotavirus A Not Detected (NOT DETECT); Salmonella Sp Not Detected (NOT DETECT); Sapovirus Not Detected (NOT DETECT); Shiga Toxin-prod E. coli-STEC Not Detected (NOT DETECT); Shigella/Enteroin E. coli-EIEC Not Detected (NOT DETECT); Vibrio Cholerae Not Detected (NOT DETECT); Vibrio Sp Not Detected (NOT DETECT); Yersinia Enterocolitica Not Detected (NOT DETECT)
[2022-08-19 05:08] LABS: International Normalized Ratio 3.11; Prothrombin Time Results 30.3 Sec (9.7-11.5)
--- NOTE | 2022-08-19 05:53 | NUR ---
INSURANCE AGENCY MANAGER SUMMARY PT MORE ALERT T/O SHIFT THAN THE PREVIOUS NIGHT. PT REPORTS FEELING BETTER; FAMILY REPORTS NOTED IMPROVEMENT ALSO. AT 2240 TEMP WAS 99.1; TREATED W/TYLENOL W/GOOD EFFECT. 0349 TEMP WAS 100.0; TREATED W/TYLENOL AND SHORT DURATION W/ICE; BY 0518 TEMP WAS 98.9. CHANGED GOWN AND BEDDING; DAMP F/PERSPIRATION. PT HAD ONE LOOSE INCONTINENT STOOL THIS SHIFT. STOOL CULTURE RETURNED POSITVE FOR CAMPYLOBACTER; ENTERIC CONTACT PRECAUTIONS INITATED. NOTIFED HOSPTIALIST OF RESULTS--NEW ORDER FOR ZITHROMAX. PT USES CALL LIGHT APPROPRIATELY; CALL LIGHT IN REACH.
--- NOTE | 2022-08-19 18:44 | NUR ---
SHIFT SUMMARY PT AXO, PLEASANT AND COOPERATIVE WITH CARE. DENIES PAIN. AFEBRILE THROUGHOUT THIS SHIFT. UP TO CHAIR WITH 1 ASSIST X1 THIS SHIFT. PT COMPLAINS OF SOB BUT DOES NOT WANT CPAP ON AT THIS TIME. PT VOMITED ONCE THIS SHIFT, MEDICATED PER EMAR. INCONTINENT OF STOOL X2 THIS SHIFT. IV PATENT AND INFUSING PER EMAR. BED IN LOW POSITION, CALL LIGHT WITHIN REACH.
--- NOTE | 2022-08-19 20:15 | NUR ---
TEMP 100.8 ORAL. INCONT OF FECES. CLEANED UP, LINEN CHANGED. TYLENOL PO GIVEN AND ICE BAGS APPLIED. WILL RE CHECK TEMP IN ABLUT AN HR. CALL LIGHT IN REACH. ISOLATION PRECAUTIONS MAINTAINED
--- NOTE | 2022-08-20 04:15 | NUR ---
INCONT OF FECES. CHANGED. NOTE SOME EXP WHEEZE. CPAP ON WITH O2 PER NC. SATS 90'S. HOB ELEVATED FOR RESP COMFORT. AFEBRILE. CALL LIGHT IN REACH
[2022-08-20 05:11] LABS: BASOPHILS ABSOLUTE AUTO 0.03 K/mm3 (0.00-0.23); BASOPHILS PERCENT AUTO 1 % (0-2); EOSINOPHILS PERCENT AUTO 0 % (0-6); Hematocrit 38.6 % (37.0-53.0); Hemoglobin 12.8 g/dL (13.5-17.5); IMMATURE GRAN ABSOLUTE AUTO 0.06 K/mm3 (0.00-0.10); IMMATURE GRAN PERCENT AUTO 1 % (0-1); LYMPHOCYTES PERCENT AUTO 10 % (21-46); MONOCYTES PERCENT AUTO 7 % (4-13); Mean Corpuscular HGB 29.5 pg (26.0-34.0); Mean Corpuscular HGB Conc 33.2 g/dL (31.5-36.5); Mean Corpuscular Volume 89 fL (80-100); Mean Platelet Volume 11.8 fL (9.1-12.4); NEUTROPHILS PERCENT AUTO 82 % (41-73); Platelet Count 131 K/mm3 (150-400); RDW Coefficient Variation 13.8 % (11.7-14.2); Red Blood Cell Count 4.34 M/mm3 (4.30-5.90); White Blood Cell Count 6.09 K/mm3 (4.00-11.30)
[2022-08-20 05:19] LABS: Bun/Creatinine Ratio 11.8 (12.0-20.0); Calcium, Blood 7.6 mg/dL (8.5-10.1); Creatinine, Blood 1.02 mg/dL (0.60-1.20); Potassium, Blood 3.6 mmol/L (3.5-5.5)
[2022-08-20 05:24] LABS: Prothrombin Time Results 49.2 Sec (9.7-11.5)
[2022-08-20 05:29] LABS: International Normalized Ratio 5.22
--- NOTE | 2022-08-20 05:50 | NUR ---
CRITICAL LAB VALUE INR 5.22, NOTIFIED AND COUMADIN/WARFARIN DC'D.
--- NOTE | 2022-08-20 05:51 | NUR ---
INSTRUMENT TECHNICIAN SUMMARY WAS VISITING AT SHIFT COMMENCE. RUNNING FEVER OF 100.8 F. TYLENOL PO GIVEN AND ICE APPLIED. EFFORTS EFFECTIVE - TEMP DOWN TO 97.4 F. IV ANTIBIOTICS INFUSING PER MD ORDERS - SEE MAR FOR DETAILS. WAS RESTING QUIETLY FOR MOST OF THE SHIFT, THEN DEVELOPED A WHEEZE, RT NOTIFIED AND THEN MD NOTIFIED. IV LASIX GIVEN FOR APPARENT FLUID OVERLOAD. O2 PER CPAP, SATS IN THE 90'S. THEN INR CAME BACK AT 5.22. MD NOTIFIED AND WARFARIN DC'D. CALL LIGHT IN REACH.
[2022-08-20 12:51] LABS: Vancomycin, Trough 18.8 ug/mL (5.0-10.0)
[2022-08-20 16:30] LABS: Source, Urine Clean Catch
--- NOTE | 2022-08-20 16:51 | NUR ---
PATIENT HAS SOMEWHAT PERKED UP THROUGH THE SHIFT. HE HAS BEEN RUNNING MULTIPLE IV'S THROUGHOUT THE SHIFT. ABX AND ANTIVIRALS. LARGE GREAT TOE RED SWOLLEN PAINFUL. URINE SAMPLE COLLECTED THIS SHIFT. MRSA CULTURE OF NARES COLLECTED. PATIENT REPORTS FEELING ILL. HE DID SLEEP ALOT THIS SHIFT, ESPECIALLY IN THE AM AND FAMILY HAS BEEN AT BEDSIDE.
[2022-08-20 17:37] LABS: Bilirubin, Urine Neg (Neg); Blood, Urine 2+ (Neg); Color, Urine Yellow (P-Yellow); Glucose Qualitative, Urine Neg (Neg); Ketones, Urine Neg (Neg); Leukocyte Esterase, Urine Neg (Neg); Nitrite, Urine Neg (Neg); Protein, Urine 2+ (Neg); Specific Gravity, Urine 1.015 (1.003-1.022); Urobilinogen, Urine NORM (Normal); pH, Urine 6.5 (5.0-8.0)
[2022-08-20 18:05] LABS: Appearance, Urine Clear (Clear)
[2022-08-20 18:07] LABS: Amorphous Light (0-Heavy); Bacteria Few /hpf; Red Blood Cells, Urine 0-2 /hpf (0-2); Squamous Epithelial Cells Rare /hpf (Few); White Blood Cells, Urine 0-2 /hpf (0-5)
--- NOTE | 2022-08-21 03:38 | NUR ---
ENTRY LEVEL PROGRAMMER SUMMARY VSS. RESPS MORE EVEN AND CLEAR COMPARED TO THAT OF LAST NIGHT. IVF INFUSING ORDERED. AFEBRILE. AFFECT AND BEHAVIOR PLEASANT. HAS BEEN RESTING QUIETLY WITH OCCASIONAL INTERUPTIONS FOR MEDS, ETC. O2 PER NC. CONT PULSE OX IN THE 90'S. CPAP ENCOURAGED. CALL LIGHT IN REACH. WILL CONTINUE TO MONITOR
[2022-08-21 05:34] LABS: Prothrombin Time Results 52.2 Sec (9.7-11.5)
[2022-08-21 05:43] LABS: International Normalized Ratio 5.56
--- NOTE | 2022-08-21 06:05 | NUR ---
NOTIFIED OF INR 5.56. DR CONWAY ACKNOWLEDGED. (WARFARIN WAS DC YESTERDAY). ASYMPTOMATIC
--- NOTE | 2022-08-21 20:07 | NUR ---
SHIFT SUMMARY PLEASANT 72-YEAR-OLD MALE IN WITH AMS, FEVER, WEAKNESS WAS A&O X4 TODAY. PTN BEDREST, UP WITH ASSIST. 2L O2 YESTERDAY FOR FLUID OVERLOAD, TODAY NO O2 WITH NO DIFFICULTY BREATHING OR SOB. REG DIET. WARFARIN HELD FOR HIGH LEVELS. PTN DOES HAVE REDNESS TO THE LARGE TOES AND EDEMA NOTED, REPORTED INGROWN TOENAILS THAT WERE TREATED. DIARRHEA REPORTED THIS SHIFT. CONTINUE TO MONITOR.
[2022-08-22 05:17] LABS: Prothrombin Time Results 45.1 Sec (9.7-11.5)
[2022-08-22 05:36] LABS: International Normalized Ratio 4.76
--- NOTE | 2022-08-22 08:02 | NUR ---
SHIFT SUMMARY: PT A/O X 4, STANDBY ASSIST. PT HAD 100.7 TEMP LAST NIGHT BUT RESOLVED WITHOUT USE OF TYLENOL. PT SLEPT MOST OF THE NIGHT BUT AWOKE THIS AM C/O A STOMACH ACHE. ABD WAS NOT DISTENDED AND NO TENDERNESS REPORTED WITH GENTLE PALPATION. ZOFRAN GIVEN FOR NAUSEA. PT BILAT GREAT TOES ARE RED AND PAINFUL TO TOUCH. PT HAS SCABS BOTH SIDES OF TOENAIL FROM A INGROWN TOENAIL TRIM A PROCEDURE DONE A COUPLE WEEKS AGO. PT ALSO HAS DEVELOPED DIARRHEA. PT WOULD BENEFIT FROM [employer]. NO OTHER CONCERNS REPORTED BY PT THROUGH THE NIGHT.
[2022-08-22] MEDS ORDERED: AMOCLA875 PO (15:21)
[2022-08-22] MEDS ORDERED: VISBIOME 112.51 EACH PO (15:21)
--- NOTE | 2022-08-22 19:17 | NUR ---
SHIFT SUMMARY PTN A&O X4 CURRENTLY, MUCH IMPROVED. PTN KENDALL'D AFTER LUNCH. PTN BIG TOES ON BOTH FEET CONTINUE TO BE RED AND SWOLLEN, WILL FOLLOW WITH [facility] FOR ANY CONCERN OR IF NOT IMPROVING, POST INGROWN TOENAIL CORRECTION. DIARRHEA REVIEWED WITH DR. ARGUETA PAPERWORK REVIEWED WITH PTN, PRESENT, MEDICATIONS FAXED OVER TO [facility] FOR PICK-UP. FOLLOW-UP APPT 1-2 WEEKS AT [facility]. PTN AND VOICED UNDERSTANDING. PTN ESCORTED OUT TO EXIST VIA WHEELCHAIR WHERE HIS WAS WAITING TO PICK HIM UP.
== END 2022-08-22 16:55 | disposition home or self-care (01) | DRG 871 ==
LOC: ER 19:01 → MEDS 08-17 01:07
PROVIDERS: Internal Medicine; Pharmacist Pharmacotherapy; Student in an Organized Health Care Education/Training Program; ADMIT Hospitalist
DX: A41.9 Sepsis, unspecified organism (principal); G93.41 Metabolic encephalopathy; I13.0 Hypertensive heart and chronic kidney disease with heart failure and stage 1 through stage 4 chronic kidney disease, or unspecified chronic kidney disease; I50.32 Chronic diastolic (congestive) heart failure; I69.351 Hemiplegia and hemiparesis following cerebral infarction affecting right dominant side; Z20.822 Contact with and (suspected) exposure to COVID-19; I48.91 Unspecified atrial fibrillation; R65.20 Severe sepsis without septic shock; K21.9 Gastro-esophageal reflux disease without esophagitis; N18.31 Chronic kidney disease, stage 3a; G47.33 Obstructive sleep apnea (adult) (pediatric); Z95.4 Presence of other heart-valve replacement; Z87.891 Personal history of nicotine dependence; Z99.89 Dependence on other enabling machines and devices; Z91.041 Radiographic dye allergy status; Z79.01 Long term (current) use of anticoagulants; Z79.82 Long term (current) use of aspirin; Z79.899 Other long term (current) drug therapy
CPT/HCPCS: 0202U; 0241U; 36415; 51701; 70450; 71045; 71046; 80048; 80053; 80202; 81001; 83605; 83735; 83880; 84145; 85025; 85610; 85651; 86140; 87040; 87252; 87254; 87507; 93005; 93010; 93306; 94660; 94762; 96365-59; 96367-59; 96375-59; 99285-25; A9270; G0480; J0133; J0290; J0696; J1940; J2405; J2765; J3370; J7030; J7050